=== PATIENT | female | born 1945 | race African-American/Black ===

== ENCOUNTER 2018-08-23 11:09 | Emergency (ER) | payer MEDICARE, MEDICAID ==
[~2018-08-23] VITALS: Ht 157.5 cm; Wt 131.5 kg
[2018-08-23 11:20] VITALS: BP 158/71
[2018-08-23] MEDS ORDERED: VITAMIN D1000 UNI1 ORAL (11:23)
[2018-08-23] MEDS ORDERED: ALLOPURINOL300 M1 ORAL (11:23)
[2018-08-23] MEDS ORDERED: POTASSIUM CHLO10 ME2 PO (11:23)
[2018-08-23] MEDS ORDERED: FUROSEMIDE20 M1 ORAL (11:23)
[2018-08-23] MEDS ORDERED: HUMULIN R100 UNIT/1 SUBQ (11:23)
[2018-08-23] MEDS ORDERED: COSOPT EYE DROP10 M1 OP (11:23)
[2018-08-23] MEDS ORDERED: FLONASE ALLERG9.9 ML NS (11:23)
[2018-08-23] MEDS ORDERED: NORCO 5-325 TA1 EACH ORAL (11:23)
[2018-08-23] MEDS ORDERED: CYCLOBENZAPRINE10 MG ORAL (11:23)
[2018-08-23] MEDS ORDERED: OMEPRAZOLE20 M2 ORAL (11:23)
[2018-08-23 11:51] LABS: HEMATOCRIT 34.2 % (37.0-47.0); HEMOGLOBIN 11.6 G/DL (12.0-16.0); LYMPHOCYTES % (AUTO) 28.6 % (20.0-45.0); MEAN CORPUSCULAR VOLUME 86 FL (80-99); MONOCYTES % (AUTO) 7.1 % (1.0-10.0); PLATELET COUNT 311 K/UL (150-450); RED CELL DISTRIBUTION WIDTH 12.1 % (11.6-14.8); WHITE BLOOD COUNT 8.7 K/UL (4.8-10.8)
[2018-08-23 11:52] LABS: EOSINOPHILS % (AUTO) 2.3 % (0.0-3.0)
[2018-08-23 12:00] VITALS: BP 150/104
[2018-08-23 12:02] LABS: ANION GAP 8 mmol/L (5-15); BLOOD UREA NITROGEN 23 mg/dL (7-18); CALCIUM 8.7 MG/DL (8.5-10.1); CARBON DIOXIDE 29 MMOL/L (21-32); CHLORIDE 103 MMOL/L (98-107); CREATININE 0.9 MG/DL (0.55-1.30); POTASSIUM 3.3 MMOL/L (3.5-5.1); SODIUM 140 MMOL/L (136-145)
--- NOTE | 2018-08-23 12:15 | Emergency Room Report ---
History of Present Illness General Chief Complaint: Chest Pain Source: Patient, Medical Record Present Illness HPI Patient presents with complaints of left upper chest and arm pain Reports ongoing for the past day Denies any headache denies any vomiting denies any change with position or exertion Pain is 8 out of 10 and sharp Denies any focal weakness denies any recent cardiac events or evaluations Allergies: Coded Allergies: ASPIRIN (Verified Allergy, Unknown, 08/23/18) PENICILLINS (Verified Allergy, Unknown, 08/23/18) SULFAMETHOXAZOLE (Verified Allergy, Unknown, 08/23/18) TRIMETHOPRIM (Verified Allergy, Unknown, 08/23/18) Uncoded Allergies: NSAID (Allergy, Unknown, 08/23/18) Patient History Past Medical History: see triage record Pertinent Family History: none Now: No Reviewed Nursing Documentation: PMH: Agreed; PSxH: Agreed Nursing Documentation-PMH Hx Cardiac Problems: Yes - hyperlipidemia,OA anemia, glaucoma, GOUT Hx Hypertension: Yes Hx Diabetes: Yes Review of Systems All Other Systems: negative except mentioned in HPI Physical Exam Vital Signs Date Time Temp Pulse Resp B/P (MAP) Pulse Ox O2 Delivery O2 Flow Rate FiO2 08/23/18 11:06 98.1 79 16 141/86 96 Room Air Sp02 EP Interpretation: reviewed, normal General Appearance: well appearing, no apparent distress Head: normocephalic, atraumatic Eyes: bilateral eye PERRL, bilateral eye EOMI ENT: hearing grossly normal, normal pharynx, TMs + canals normal, uvula midline Neck: full range of motion, supple, no meningismus, no bony tend Respiratory: lungs clear, normal breath sounds, no rhonchi, no respiratory distress, no retraction, no accessory muscle use Cardiovascular #1: normal peripheral pulses, regular rate, rhythm, no edema, no gallop, no JVD, no murmur Gastrointestinal: normal bowel sounds, non tender, soft, no mass, no organomegaly, non-distended, no guarding, no hernia, no pulsatile mass, no rebound Genitourinary: no CVA tenderness Musculoskeletal: normal inspection Neurologic: oriented x3, responsive, 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 tested, motor strength/ tone normal, sensory intact Psychiatric: mood/affect normal Skin: normal color, no rash, warm/dry, palpation normal Lymphatic: normal inspection, no adenopathy Medical Decision Making Diagnostic Impression: Primary Impression: ACS (acute coronary syndrome) ER Course Patient is a fairly complex patient with multiple differential to consideration including but not limited to cardiac cardiopulmonary and vascular emergencies Patient also has some mechanical component with this involving the left shoulder and arm There is no obvious trauma or swelling consideration for DVT is made however does not clinically correlate Patient's baseline blood work are appropriate EKG is also within baseline levels Given the patient's age risk factors and presentation patient requires further inpatient investigation Secondary to insurance coverage patient requires transfer Labs Test 08/23/18 11:25 White Blood Count 8.7 K/UL (4.8-10.8) Red Blood Count 4.00 M/UL (4.20-5.40) Hemoglobin 11.6 G/DL (12.0-16.0) Hematocrit 34.2 % (37.0-47.0) Mean Corpuscular Volume 86 FL (80-99) Mean Corpuscular Hemoglobin 28.9 PG (27.0-31.0) Mean Corpuscular Hemoglobin Concent 33.7 G/DL (32.0-36.0) Red Cell Distribution Width 12.1 % (11.6-14.8) Platelet Count 311 K/UL (150-450) Mean Platelet Volume 6.8 FL (6.5-10.1) Neutrophils (%) (Auto) 61.0 % (45.0-75.0) Lymphocytes (%) (Auto) 28.6 % (20.0-45.0) Monocytes (%) (Auto) 7.1 % (1.0-10.0) Eosinophils (%) (Auto) 2.3 % (0.0-3.0) Basophils (%) (Auto) 1.0 % (0.0-2.0) Sodium Level 140 MMOL/L (136-145) Potassium Level 3.3 MMOL/L (3.5-5.1) Chloride Level 103 MMOL/L (98-107) Carbon Dioxide Level 29 MMOL/L (21-32) Anion Gap 8 mmol/L (5-15) Blood Urea Nitrogen 23 mg/dL (7-18) Creatinine 0.9 MG/DL (0.55-1.30) Estimat Glomerular Filtration Rate mL/min (>60) Glucose Level 202 MG/DL (74-106) Calcium Level 8.7 MG/DL (8.5-10.1) Total Bilirubin 0.5 MG/DL (0.2-1.0) Aspartate Amino Transf (AST/SGOT) 12 U/L (15-37) Alanine Aminotransferase (ALT/SGPT) 18 U/L (12-78) Alkaline Phosphatase 77 U/L (46-116) Total Creatine Kinase 24 U/L (26-308) Creatine Kinase MB 0.5 NG/ML (0.0-3.6) Creatine Kinase MB Relative Index 2.0 Troponin I 0.020 ng/mL (0.000-0.056) Pro-B-Type Natriuretic Peptide 147 pg/mL (0-125) Total Protein 7.2 G/DL (6.4-8.2) Albumin 2.9 G/DL (3.4-5.0) Globulin 4.3 g/dL Albumin/Globulin Ratio 0.7 (1.0-2.7) Lipase 97 U/L (73-393) EKG Diagnostic Results Rate: normal Rhythm: NSR ST Segments: no acute changes Rhythm Strip Diag. Results EP Interpretation: yes Rate: 80 Rhythm: NSR, no PVC's, no ectopy Chest X-Ray Diagnostic Results Chest X-Ray Diagnostic Results : Chest X-Ray Ordered: Yes # of Views/Limited/Complete: 1 View Indication: Chest Pain EP Interpretation: Yes Interpretation: no consolidation, no effusion, no pneumothorax Impression: No acute disease Electronically Signed by: Gabbie Carvajal DO Last Vital Signs Date Time Temp Pulse Resp B/P (MAP) Pulse Ox O2 Delivery O2 Flow Rate FiO2 08/23/18 11:20 98.4 75 16 158/71 98 Room Air Status: improved Disposition: XFER SHT-TRM HOSP Condition: Serious Referrals: [facility] (PCP) Gabbie Carvajal DO Aug 23, 2018 12:15
[2018-08-23 12:17] LABS: ALANINE AMINOTRANSFERASE 18 U/L (12-78); ALBUMIN 2.9 G/DL (3.4-5.0); ALBUMIN/GLOBULIN RATIO 0.7 (1.0-2.7); ALKALINE PHOSPHATASE 77 U/L (46-116); ASPARTATE AMINO TRANSFERASE 12 U/L (15-37); BILIRUBIN,TOTAL 0.5 MG/DL (0.2-1.0); CKMB 0.5 NG/ML (0.0-3.6); CREATINE KINASE 24 U/L (26-308)
--- NOTE | 2018-08-23 12:46 | Diagnostic Imaging Report ---
Indication: Chest pain Technique: One view of the chest Comparison: none Findings: The left hemidiaphragm is slightly elevated. The heart size is upper limits of normal. The aorta is tortuous. There is some atelectasis at the left lung base. The lungs and pleural spaces are otherwise clear. Impression: Left basilar atelectasis. Other findings as noted. No definite acute process
[2018-08-23 14:23] VITALS: BP 90/58
[2018-08-23 14:25] VITALS: BP 90/58
== END 2018-08-23 14:28 | disposition short-term general hospital (02) ==
LOC: EDBD 11:09 → EMR 12:06
DX: I24.9 Acute ischemic heart disease, unspecified (principal); Z88.0 Allergy status to penicillin; Z88.6 Allergy status to analgesic agent; Z88.2 Allergy status to sulfonamides; I10 Essential (primary) hypertension; E11.9 Type 2 diabetes mellitus without complications; E78.5 Hyperlipidemia, unspecified; M19.90 Unspecified osteoarthritis, unspecified site
CPT/HCPCS: 36415; 71045; 80053; 82550; 82553; 83690; 83880; 84484; 85025; 93005; 99285